=== PATIENT | male | born 1940 | race Caucasian/White ===

== ENCOUNTER 2018-09-06 17:59 | Inpatient (IN) | payer MEDICARE, OTHER ==
[~2018-09-06] VITALS: Ht 160 cm; Wt 193.0 kg
--- NOTE | 2018-09-06 19:00 | NUR ---
pt arrived to floor via gurney, ambulated to bathroom independently. No chest Pain, ID band on, oriented to unit. call light at bedside.MD Vasquez notified of pt arrival
[2018-09-06] MEDS ORDERED: MESSAGE TO PHARMACY PO ONE ×2 (20:10→22:40)
[2018-09-06] MEDS ORDERED: dextrose ORAL solution 15 GM/59 ML bottle PO PRN ×4 (20:10→22:40)
[2018-09-06] MEDS ORDERED: glucagon, human recombinant 1mg kit SUBCUT PRN ×2 (20:10→22:40)
[2018-09-06] MEDS ORDERED: dextrose 50%-water 50ml dispensing syringe IV PRN ×4 (20:10→22:40)
[2018-09-06] MEDS ORDERED: insulin Lispro (HumaLOG) vial - multi-dose SQ SCH ×2 (20:10→22:40)
[2018-09-06] MEDS: insulin glargine (Lantus) pen - multi-dose SQ SCH (21:00)
[2018-09-06 21:16] LABS: HEMOGLOBIN A1C 5.9 % (4.5-6.2)
[2018-09-06] MEDS ORDERED: TRAM50TA2 PO (21:26)
[2018-09-06] MEDS ORDERED: TIOT18CA3 INH (21:26)
[2018-09-06] MEDS ORDERED: ENAL2.5T40 PO (21:26)
[2018-09-06] MEDS ORDERED: OMEG1CAP PO (21:26)
[2018-09-06] MEDS ORDERED: NITR0.4T SL (21:26)
[2018-09-06] MEDS ORDERED: MULT-933 PO (21:26)
[2018-09-06] MEDS ORDERED: MUPI22OI30 TP (21:26)
[2018-09-06] MEDS ORDERED: GABA600T13 PO (21:26)
[2018-09-06] MEDS ORDERED: METO1TAB25 PO (21:26)
[2018-09-06] MEDS ORDERED: FURO-150 PO (21:26)
[2018-09-06] MEDS ORDERED: UREA227C4 TP (21:26)
[2018-09-06] MEDS ORDERED: ALB0.5UD IH (21:26)
[2018-09-06] MEDS ORDERED: ALBU18HF2 INH (21:26)
[2018-09-06] MEDS ORDERED: INSU100V12 SQ ×2 (21:26)
[2018-09-06] MEDS ORDERED: HYDR71PA TP (21:26)
[2018-09-06] MEDS ORDERED: ZOLP5TAB8 PO (21:26)
[2018-09-06] MEDS ORDERED: EMPA25TA PO (21:26)
[2018-09-06] MEDS ORDERED: FLO0.4C PO (21:26)
[2018-09-06] MEDS ORDERED: MELO-102 PO (21:26)
[2018-09-06] MEDS ORDERED: CHOL100046 PO (21:26)
[2018-09-06] MEDS ORDERED: ASPI-1265 PO (21:26)
[2018-09-06] MEDS ORDERED: APIX5TAB3 PO (21:26)
[2018-09-06] MEDS ORDERED: ATOR80TA PO (21:26)
[2018-09-06] MEDS ORDERED: VITA100D6 PO (21:26)
[2018-09-06] MEDS ORDERED: MAGN296S50 PO (21:26)
[2018-09-06] MEDS ORDERED: CYAN-51 PO (21:26)
[2018-09-06 22:18] LABS: BASOPHILS % (AUTO) 0.7 % (0-1); EOSINOPHILS # (AUTO) 0.1 X10'3 (0-0.9); EOSINOPHILS % (AUTO) 2.9 % (0-6); HEMOGLOBIN 15.4 g/dl (14.0-17.9); LYMPHOCYTES # (AUTO) 0.9 X10'3 (1.1-4.8); LYMPHOCYTES % (AUTO) 22.4 % (21-51); MEAN CORPUSCULAR HEMOGLOBIN 31.2 PG (27.0-31.0); MEAN CORPUSCULAR HGB CONC 33.5 g/dL (33.0-36.5); MEAN CORPUSCULAR VOLUME 93.3 FL (78-98); MEAN PLATELET VOLUME 9.5 FL (7.4-10.4); MONOCYTES # (AUTO) 0.4 X10'3 (0-0.9); MONOCYTES % (AUTO) 10.3 % (2-12); NEUTROPHILS # (AUTO) 2.5 X10'3 (1.8-7.7); NEUTROPHILS % (AUTO) 63.7 % (42-75); PLATELET COUNT 87 X10'3 (140-440); RED BLOOD COUNT 4.93 X10'6 (4.70-6.10); RED CELL DISTRIBUTION WIDTH 16.4 % (11.5-14.5); WHITE BLOOD COUNT 3.9 X10'3 (4.5-11.0)
[2018-09-06 22:24] LABS: ALANINE AMINOTRANSFERASE 34 U/L (12-78); ALBUMIN 3.8 G/DL (3.4-5.0); ALBUMIN/GLOBULIN RATIO 1.1 (1.1-1.5); ALKALINE PHOSPHATASE 79 IU/L (46-116); ANION GAP 11 (8-16); ASPARTATE AMINO TRANSFERASE 22 U/L (10-37); BILIRUBIN,TOTAL 0.9 MG/DL (0.1-1.0); BLOOD UREA NITROGEN 26 MG/DL (7-18); BUN/CREATININE RATIO 21.3 (5.4-32.0); CALCIUM 9.6 MG/DL (8.5-10.1); CHLORIDE 101 MMOL/L (99-107); CREATININE 1.22 MG/DL (0.60-1.10); GLUCOSE 128 MG/DL (70-104); SODIUM 137 MMOL/L (135-145); TOTAL CARBON DIOXIDE 25.5 MMOL/L (24-32); TOTAL PROTEIN 7.2 G/DL (6.4-8.2); eGFR 58 ML/MIN
[2018-09-06] MEDS ORDERED: magnesium 2GM in 50ml NS 50 ML IV PRN (22:40)
[2018-09-06] MEDS ORDERED: acetaminophen 325mg tablet PO PRN (22:40)
[2018-09-06] MEDS ORDERED: ondansetron/PF 4mg/2ml inj IV PRN (22:40)
[2018-09-06] MEDS ORDERED: docusate sod 100mg capsule PO PRN (22:40)
[2018-09-06] MEDS ORDERED: mag hydrox/Alum hydrox/simeth 30ml oral suspension PO PRN (22:40)
[2018-09-06] MEDS ORDERED: potassium Cl 20 mEq SR tablet PO PRN ×2 (22:40)
[2018-09-06] MEDS ORDERED: magnesium 4gm in 100ml NS 100 ML IV PRN (22:40)
[2018-09-06] MEDS ORDERED: potassium CL 10mEq/100ml bag 100 ML IV PRN ×2 (22:40)
[2018-09-06 23:00] VITALS: BP 108/55
[2018-09-07] VITALS (14 sets, daily range): BP systolic 115–166; BP diastolic 54–75
[2018-09-07 02:36] LABS: BASOPHILS % (AUTO) 0.4 % (0-1); EOSINOPHILS # (AUTO) 0.2 X10'3 (0-0.9); EOSINOPHILS % (AUTO) 4.1 % (0-6); HEMATOCRIT 47.1 % (42.0-52.0); HEMOGLOBIN 15.6 g/dl (14.0-17.9); LYMPHOCYTES # (AUTO) 0.9 X10'3 (1.1-4.8); MEAN CORPUSCULAR HEMOGLOBIN 31.1 PG (27.0-31.0); MEAN CORPUSCULAR HGB CONC 33.1 g/dL (33.0-36.5); MEAN CORPUSCULAR VOLUME 93.8 FL (78-98); MEAN PLATELET VOLUME 9.3 FL (7.4-10.4); MONOCYTES # (AUTO) 0.4 X10'3 (0-0.9); MONOCYTES % (AUTO) 9.8 % (2-12); NEUTROPHILS # (AUTO) 2.3 X10'3 (1.8-7.7); NEUTROPHILS % (AUTO) 60.7 % (42-75); PLATELET COUNT 88 X10'3 (140-440); RED BLOOD COUNT 5.02 X10'6 (4.70-6.10); RED CELL DISTRIBUTION WIDTH 16.1 % (11.5-14.5); WHITE BLOOD COUNT 3.7 X10'3 (4.5-11.0)
[2018-09-07 02:49] LABS: ALANINE AMINOTRANSFERASE 33 U/L (12-78); ALBUMIN 3.8 G/DL (3.4-5.0); ALBUMIN/GLOBULIN RATIO 1.2 (1.1-1.5); ALKALINE PHOSPHATASE 76 IU/L (46-116); ANION GAP 8 (8-16); ASPARTATE AMINO TRANSFERASE 18 U/L (10-37); BILIRUBIN,TOTAL 0.9 MG/DL (0.1-1.0); BLOOD UREA NITROGEN 30 MG/DL (7-18); BUN/CREATININE RATIO 25.9 (5.4-32.0); CALCIUM 9.8 MG/DL (8.5-10.1); CHLORIDE 102 MMOL/L (99-107); CREATININE 1.16 MG/DL (0.60-1.10); GLUCOSE 125 MG/DL (70-104); POTASSIUM 3.8 MMOL/L (3.5-5.1); SODIUM 138 MMOL/L (135-145); TOTAL CARBON DIOXIDE 28.4 MMOL/L (24-32); TOTAL PROTEIN 7.1 G/DL (6.4-8.2); eGFR 61 ML/MIN
[2018-09-07 02:52] LABS: CHOL/HDL RATIO 2.1 (0.00-4.99); CHOLESTEROL 149 MG/DL (0-200); HDL CHOLESTEROL 71 MG/DL (35-60); LDL CHOLESTEROL 61 MG/DL (50-100); MAGNESIUM 1.9 MG/DL (1.5-2.4); TRIGLYCERIDES 151 MG/DL (20-135)
--- NOTE | 2018-09-07 06:23 | NUR ---
Problems reprioritized. Patient report given, questions answered & plan of care reviewed with Merritt AND Radhika rnS.
--- NOTE | 2018-09-07 06:39 | NUR ---
Patient in room PCU 3027. I have received report from Lizbeth MAYEN and had the opportunity to ask questions and assume patient care. Patient asleep in bed. Will continue to monitor.
--- NOTE | 2018-09-07 07:06 | NUR ---
Patient in room PCU 3027. I have received report from Lizbeth MAYEN and had the opportunity to ask questions and assume patient care. Patient in bed resting, all needs met at this time. will continue to monitor.
--- NOTE | 2018-09-07 07:07 | NUR ---
Ok to give breakfast per Liberty Marquez NP.
--- NOTE | 2018-09-07 07:17 | NUR ---
DAMASO Duncan requesting results of pt's ECHO from [facility]. Notified pt's primary RN, Marilynn, she will follow up.
[2018-09-07] MEDS: K and/or MAG REPLACEMENT MC SCH (07:54)
[2018-09-07] MEDS ORDERED: SITA25TA3 PO (08:59)
[2018-09-07] MEDS ORDERED: METO25TA6 PO (09:05)
[2018-09-07] MEDS ORDERED: VITA-268 PO (09:07)
[2018-09-07] MEDS ORDERED: AMMO385C4 TOP (09:13)
[2018-09-07] MEDS ORDERED: zolpidem 5mg tablet PO PRN (09:40)
[2018-09-07] MEDS ORDERED: albuterol 2.5 MG/3 ML nebule NEB PRN (10:10)
--- NOTE | 2018-09-07 10:12 | NUR ---
PAGER ID: [phone] MESSAGE: [id number] mohamud Garay: New admit does not have PRN pain medication, Pt takes tramadol at home. Please advise. Pippa [phone]
--- NOTE | 2018-09-07 11:12 | NUR ---
Problems reprioritized. Patient report given, questions answered & plan of care reviewed with Marilee MAYEN.
--- NOTE | 2018-09-07 11:38 | NUR ---
Patient transferred to ACCE unit @1130 via wheelchair and 2 hospital staff, all belongings with patient, gave report to RN, took off tele 36 and returned, all needs met at this time.
--- NOTE | 2018-09-07 11:45 | NUR ---
Pt arrived to ACCE rm 310. VS stable. Pt to [facility] later this afternoon. Told in report that pt is to be NPO after lunch for [facility]. No c/o chest pain.
--- NOTE | 2018-09-07 12:04 | NUR ---
[place] documentation: I have reviewed and agree with all interventions, assessments performed and documented by Pippa MAYEN. [place] Medication Administration: For this medication-pass time frame, all medication were reviewed, dispensed, administered and documented per hospital policy by TIARRA Das.
[2018-09-07] MEDS: gabapentin 300mg capsule PO SCH ×2 (13:20→20:59)
[2018-09-07] MEDS: omega-3 acid ethyl esters 1GM capsule PO SCH ×2 (13:20→20:58)
[2018-09-07] MEDS ORDERED: midazolam 2 mg/2 ml injection ONE (16:08)
[2018-09-07] MEDS ORDERED: fentaNYL/PF 50MCG/1 ML 2ML syringe ONE (16:08)
[2018-09-07] MEDS ORDERED: LIDOcaine 1% (10mg/ml)w/preservative injection 20ml MDV ONE (16:09)
[2018-09-07] MEDS ORDERED: iohexol 350MG/ML 100ml bottle IV ONE (16:09)
--- NOTE | 2018-09-07 18:00 | NUR ---
Problems reprioritized. Patient report given, questions answered & plan of care reviewed with
--- NOTE | 2018-09-07 18:39 | NUR ---
Patient in room MED 308. I have received report from Anayeli MAYEN and had the opportunity to ask questions and assume patient care.
[2018-09-07] MEDS ORDERED: iohexol 350 MG/ML 50ML vial IV ONE (19:53)
[2018-09-07] MEDS ORDERED: heparin 1,000unit/ml 10ml vial 10 ML ONE (19:58)
[2018-09-07] MEDS: furosemide 20MG tablet PO SCH (20:00)
[2018-09-07] MEDS: apixaban 5mg tablet PO SCH ×2 (20:00→20:58)
[2018-09-07] MEDS ORDERED: clopidogrel 300mg tablet ONE (20:02)
--- NOTE | 2018-09-07 20:30 | NUR ---
PT WAS EATING IN [place] BUT BEGAN TO CHOKE ON FOOD. PT WAS ROLLED TO SIDE, HE KEPT HIS LEG STRAIGHT, AND GROIN SITE CDI AFTER HE STOPPED CHOKING. YANKAUER/SUCTION AVAILABLE TO PT. HE CLEARED THE FOOD ON HIS OWN, ALTHOUGH HE DID VOMIT AND IT TOOK A FEW TRIES FOR HIM TO CLEAR THE STUCK CHICKEN. LUNG SOUNDS CLEAR PER RT WHO WAS ON UNIT AND ASSISTED AT THE TIME.
[2018-09-07] MEDS: traMADol 50MG tablet PO PRN (21:00)
[2018-09-07] MEDS ORDERED: insulin glargine (Lantus) pen - multi-dose SQ SCH (21:00)
[2018-09-07] MEDS: metoprolol tartrate 25mg tablet PO SCH (21:00)
[2018-09-07] MEDS: insulin glargine (Lantus) pen - multi-dose SQ SCH (21:00)
[2018-09-07] MEDS ORDERED: tamsulosin 0.4mg capsule PO SCH (21:00)
[2018-09-07] MEDS ORDERED: atorvastatin 20mg tablet PO SCH (21:00)
[2018-09-08] VITALS (7 sets, daily range): BP systolic 100–134; BP diastolic 42–63
[2018-09-08 05:32] LABS: BASOPHILS % (AUTO) 0.6 % (0-1); EOSINOPHILS # (AUTO) 0.1 X10'3 (0-0.9); HEMATOCRIT 45.6 % (42.0-52.0); HEMOGLOBIN 15.1 g/dl (14.0-17.9); LYMPHOCYTES # (AUTO) 0.7 X10'3 (1.1-4.8); LYMPHOCYTES % (AUTO) 19.4 % (21-51); MEAN CORPUSCULAR HGB CONC 33.1 g/dL (33.0-36.5); MEAN CORPUSCULAR VOLUME 93.6 FL (78-98); MEAN PLATELET VOLUME 9.4 FL (7.4-10.4); MONOCYTES # (AUTO) 0.4 X10'3 (0-0.9); MONOCYTES % (AUTO) 9.9 % (2-12); NEUTROPHILS # (AUTO) 2.6 X10'3 (1.8-7.7); NEUTROPHILS % (AUTO) 68.1 % (42-75); PLATELET COUNT 85 X10'3 (140-440); RED BLOOD COUNT 4.87 X10'6 (4.70-6.10); RED CELL DISTRIBUTION WIDTH 16.4 % (11.5-14.5); WHITE BLOOD COUNT 3.8 X10'3 (4.5-11.0)
[2018-09-08 05:46] LABS: ALANINE AMINOTRANSFERASE 27 U/L (12-78); ALBUMIN 3.6 G/DL (3.4-5.0); ALBUMIN/GLOBULIN RATIO 1.1 (1.1-1.5); ALKALINE PHOSPHATASE 70 IU/L (46-116); ANION GAP 10 (8-16); ASPARTATE AMINO TRANSFERASE 20 U/L (10-37); BILIRUBIN,TOTAL 0.9 MG/DL (0.1-1.0); BLOOD UREA NITROGEN 28 MG/DL (7-18); BUN/CREATININE RATIO 25.5 (5.4-32.0); CALCIUM 9.4 MG/DL (8.5-10.1); CHLORIDE 104 MMOL/L (99-107); GLUCOSE 140 MG/DL (70-104); POTASSIUM 4.3 MMOL/L (3.5-5.1); SODIUM 139 MMOL/L (135-145); TOTAL CARBON DIOXIDE 24.9 MMOL/L (24-32); TOTAL PROTEIN 6.8 G/DL (6.4-8.2); eGFR 65 ML/MIN
--- NOTE | 2018-09-08 06:02 | NUR ---
Problems reprioritized. Patient report given, questions answered & plan of care reviewed with Swati MAYEN.
[2018-09-08] MEDS ORDERED: HYDROcodone/acetaminophen 5mg/325mg tablet PO PRN (07:45)
[2018-09-08] MEDS ORDERED: HYDROcodone/acetaminophen 10/325mg tab PO PRN (07:45)
[2018-09-08] MEDS ORDERED: ondansetron/PF 4mg/2ml inj IV PRN (07:45)
[2018-09-08] MEDS ORDERED: acetaminophen 325mg tablet PO PRN (07:45)
[2018-09-08] MEDS ORDERED: proCHLORperazine 10 MG/2 ml inj IV PRN (07:45)
[2018-09-08] MEDS ORDERED: OXAZEpam 15mg capsule PO PRN (07:45)
[2018-09-08] MEDS ORDERED: multivitamins, therapeutics tablet PO SCH (08:00)
[2018-09-08] MEDS ORDERED: magnesium citrate 296ml oral solution PO SCH (08:00)
[2018-09-08] MEDS ORDERED: vitamin B comp w/Vit. C tab 1 TAB TABLET PO SCH (08:00)
[2018-09-08] MEDS ORDERED: aspirin 81mg tab.chew PO SCH (08:00)
[2018-09-08] MEDS ORDERED: AMMONIUM LACTATE TOP SCH (08:00)
[2018-09-08] MEDS ORDERED: lisinopril 10 MG tablet PO SCH (08:00)
[2018-09-08] MEDS ORDERED: ipratropium 0.5 MG/2.5ML nebule NEB SCH (08:00)
[2018-09-08] MEDS ORDERED: clopidogrel 75mg tablet PO SCH (08:00)
[2018-09-08] MEDS ORDERED: VITAMIN E PO SCH (08:00)
[2018-09-08] MEDS ORDERED: vitamin D (cholecalciferol) 1,000 unit tablet PO SCH (08:00)
[2018-09-08] MEDS: K and/or MAG REPLACEMENT MC SCH (08:00)
[2018-09-08] MEDS ORDERED: mineral oil/petrolatum, white cream 113gm jar TP SCH (08:00)
[2018-09-08] MEDS ORDERED: mupirocin 2% ointment 22GM TP SCH (08:00)
[2018-09-08] MEDS: omega-3 acid ethyl esters 1GM capsule PO SCH ×2 (08:27→13:25)
[2018-09-08] MEDS: gabapentin 300mg capsule PO SCH ×2 (08:27→12:18)
[2018-09-08] MEDS: apixaban 5mg tablet PO SCH (08:27)
[2018-09-08] MEDS: furosemide 20MG tablet PO SCH (08:31)
[2018-09-08] MEDS: metoprolol tartrate 25mg tablet PO SCH (08:32)
[2018-09-08] MEDS ORDERED: CLOP75TA35 PO (11:08)
--- NOTE | 2018-09-08 12:45 | NUR ---
pt declined to have RN make follow up appointment. pt will make own follow up appointments.
[2018-09-08] MEDS: traMADol 50MG tablet PO PRN (14:41)
--- NOTE | 2018-09-08 18:30 | NUR ---
discharge education provided, including follow up and medications; all questions answered. pt removed from cardiac monitoring, IV removed; cannula intact. pt refused wheel chair and ambulated downstairs with all belongings.
== END 2018-09-08 18:30 | disposition home health service (06) | DRG 249 ==
LOC: PCU 3S 20:08 → MED 3N 09-07 11:44
PROVIDERS: ADMIT Internal Medicine; ATTEND Family Medicine
PROC: 4A023N7 Measurement of Cardiac Sampling and Pressure, Left Heart, Percutaneous Approach (ICD-10-PCS; principal; 2018-09-07)
PROC: 02703DZ Dilation of Coronary Artery, One Artery with Intraluminal Device, Percutaneous Approach (ICD-10-PCS; 2018-09-07)
PROC: B2111ZZ Fluoroscopy of Multiple Coronary Arteries using Low Osmolar Contrast (ICD-10-PCS; 2018-09-07)
PROC: B2151ZZ Fluoroscopy of Left Heart using Low Osmolar Contrast (ICD-10-PCS; 2018-09-07)
DX: T82.855A Stenosis of coronary artery stent, initial encounter (principal); I50.22 Chronic systolic (congestive) heart failure; I13.0 Hypertensive heart and chronic kidney disease with heart failure and stage 1 through stage 4 chronic kidney disease, or unspecified chronic kidney disease; D69.6 Thrombocytopenia, unspecified; I49.5 Sick sinus syndrome; I48.0 Paroxysmal atrial fibrillation; I25.5 Ischemic cardiomyopathy; E11.22 Type 2 diabetes mellitus with diabetic chronic kidney disease; E11.51 Type 2 diabetes mellitus with diabetic peripheral angiopathy without gangrene; E78.00 Pure hypercholesterolemia, unspecified; E78.5 Hyperlipidemia, unspecified; G47.33 Obstructive sleep apnea (adult) (pediatric); I25.119 Atherosclerotic heart disease of native coronary artery with unspecified angina pectoris; E05.90 Thyrotoxicosis, unspecified without thyrotoxic crisis or storm; I65.29 Occlusion and stenosis of unspecified carotid artery; J44.9 Chronic obstructive pulmonary disease, unspecified; Z60.2 Problems related to living alone; N18.9 Chronic kidney disease, unspecified; Y83.1 Surgical operation with implant of artificial internal device as the cause of abnormal reaction of the patient, or of later complication, without mention of misadventure at the time of the procedure; Z79.01 Long term (current) use of anticoagulants; Z79.4 Long term (current) use of insulin; I25.2 Old myocardial infarction; Z80.0 Family history of malignant neoplasm of digestive organs; Z80.1 Family history of malignant neoplasm of trachea, bronchus and lung; Z80.3 Family history of malignant neoplasm of breast; Z87.891 Personal history of nicotine dependence; Z88.0 Allergy status to penicillin; Z91.018 Allergy to other foods; Z79.899 Other long term (current) drug therapy; Z79.82 Long term (current) use of aspirin; Y92.89 Other specified places as the place of occurrence of the external cause; Z95.0 Presence of cardiac pacemaker
CPT/HCPCS: 93458; C9600; 36415; 80053; 80061; 82948; 83036; 83735; 84484; 85025; 87081; 93005; 94760; 99152; 99153; A4620; A6258; C1725; C1760; C1769; C1876; G0378; J1644; J1815; J2001; J2250; J3010; Q9967